=== PATIENT | male | born 1975 | race Caucasian/White ===

== ENCOUNTER 2024-01-07 11:47 | Emergency (ER) | payer OTHER, SELFPAY ==
[2024-01-07 11:48] VITALS: BP 165/89
[2024-01-07 11:55] VITALS: BP 146/92
[2024-01-07 12:00] VITALS: BP 126/93
[2024-01-07] MEDS: NSS 500 IV (12:13)
[2024-01-07 12:15] VITALS: BMI 37.1
[2024-01-07 12:27] LABS: Hematocrit 40.8 % (39.0-52.0); Hemoglobin 14.5 g/dL (13.0-18.0); Mean Corp Hgb Conc. 35.5 g/dL (33.0-37.0); Mean Corpuscular Hgb 30.2 pg (27.0-31.0); Mean Platelet Volume 10.2 fL (7.4-10.4); Platelet Count 172 10^3/uL (130-400); Red Cell Dist. Width 11.7 % (11.5-14.5); White Blood Cell Count 7.4 10^3/uL (4.8-10.8)
[2024-01-07 12:42] LABS: Blood Urea Nitrogen 15 mg/dl (9-20); Calcium 9.1 mg/dl (8.4-10.2); Carbon Dioxide 24 mmol/L (22-30); Chloride 104 mmol/L (98-107); Estimated Creatinine Clearance > 125 ml/min; Glucose 153 mg/dl (70-99); Sodium 139 mmol/L (135-145); eGFR > 60.00
--- NOTE | 2024-01-07 12:50 | ED.GENMED ---
History of Present Illness
General
Chief Complaint: Flank Pain
Source: patient
Exam Limitations: none
Time Seen by Provider: 01/07/24 12:01
Nursing documentation reviewed up to this point in time: agreed with
Travel History
Have you had any contact with someone who has COVID-19?: No
Do you have any symptoms of coronavirus? Fever > 100 degrees, chills, cough, shortness of breath, sore throat, loss of taste or smell, muscle aches, or headache?: No
History of Present Illness
History of Present Illness:
Patient presents to ED secondary to persistent right flank pain over the past 2 weeks, which started the night of his outpatient regularly scheduled, routine colonoscopy. Pain described as sharp, worse with certain movements. Denies any symptoms
at rest. Denies trauma. Denies shortness of breath. Denies fever or chills. Denies recent change in activities. Denies nausea or vomiting. Denies previous history of similar symptoms. Denies family history of blood clots. Secondary to
ongoing abdominal/flank pain, outpatient CT abdomen pelvis was ordered today, which revealed right lower lobe subsegmental PE. Patient was subsequently referred to ED for further evaluation and treatment.
Past History
Past History
ED Past Medical History: None
ED Past Surgical History: None
Social History
Tobacco: Non-smoker
Review of Systems
Review of Systems
Allergies reviewed?: Yes
All Other Systems: ROS reviewed and negative except as documented in HPI and ROS
Constitutional: Reports no symptoms
EENT: Reports no symptoms
Respiratory: Reports no symptoms
Cardiac: Reports no symptoms
ABD/GI: Reports no symptoms
: Reports flank pain
Musculoskeletal: Reports no symptoms
Skin: Reports no symptoms
Neurological: Reports no symptoms
Phy Exam
Physical Exam
Physical Exam:
Physical Exam
General: no apparent distress, not acutely ill. afebrile
Head: nc/at. eomi
Neck: supple. no meningeal signs.
Heart: s1/s2 regular rate and rhythm, no murmur. equal radial pulses.
Lungs: no acute respiratory distress. clear bilaterally. chest wall nontender to palpation.
Abdomen: normal bowel sounds. not tender.
Neuro: alert and oriented. no focal neurological deficits
Skin: no rash
Psychiatric: well kept. interactive and cooperative
Extremities: no edema. no calf tenderness.
Course
Orders/Labs/Results
Orders:
Orders
01/07/24 12:05
CT Chest Pe Study Urgent
Comment:
Reason For Exam: Outpt CT abd/pel with possible RLL PE
01/07/24 12:06
0.9% Sodium Chloride 500 ml [Nss] 500 ml IV BOLUS
01/07/24 12:12
Basic Metabolic Panel Urgent
Complete Blood Count/No Diff Urgent
01/07/24 14:59
Apixaban [Eliquis] 10 mg PO NOW STA
Abnormal Lab Results
01/07/24
12:12
Glucose 153 H mg/dl
(70-99)
01/07/24 12:12
01/07/24 12:12
Vital Signs
Initial and Last Documented VS:
Initial Vital Signs
Temp Pulse Resp BP Pulse Ox
98.0 F 73 20 165/89 100
01/07/24 11:48 01/07/24 11:48 01/07/24 11:48 01/07/24 11:48 01/07/24 11:48
Last Documented Vital Signs
Temp Pulse Resp BP Pulse Ox
98.0 F 61 22 142/81 95
01/07/24 11:48 01/07/24 15:15 01/07/24 15:15 01/07/24 15:00 01/07/24 15:00
MDM/Problems Addressed
MDM/Problems Addressed:
CT report reviewed: Left lower lobe subsegmental PE, without any evidence of right heart strain. In addition, patient remains afebrile, hemodynamically stable, without any discomfort during observation. As such, after discussion with patient and
spouse, who are both physicians, patient will be discharged home on Eliquis, with referral to pulmonology for an urgent outpatient consultation for further workup. Patient advised to return to ED with worsening symptoms.
*Critical Care Note
Total Time (30-74mins, 75-104mins- exclusive of procedures): Not Applicable
ED Attending Note
-
Portions of this chart may have been created with voice recognition software.� Occasional wrong word or��sound alike� substitutions may have occurred due to the inherent limitations of voice recognition software.
Discharge Plan
Departure
Patient Disposition: Home (Routine Discharge)
Date of Disposition: 01/07/24
Time of Disposition: 15:02
Patient with high blood pressure during this ER visit?: Yes
Condition: Good
Discharge Problem:
Pulmonary embolism
Instructions: Pulmonary embolism - Discharge instructions, ED Low Risk PE
Prescriptions:
New
Eliquis DVT-PE Treat 30D Start 5 mg (74 tabs) tablets,dose pack
See Rx Instructions .ROUTE .COMPLEX Qty: 74 0RF
Rx Instructions:
orally per package directions
Referrals:
Stan Coleman MD [Active] -
Evy Hsieh MD [Family Provider] -
Activity Restrictions/Additional Instructions:
As discussed, please follow-up with referred meteorological technician for further evaluation and treatment. You will receive a phone call at home next week from meteorological technician office with an appointment date. Your prescription has been sent electronically to
[facility] pharmacy on [facility] in [place].
Interventions
Interventions:
*Risk Screen - Suicide Last Done: 01/07/24 11:48
*General Assessment Last Done: 01/07/24 11:48
*Neglect/Abuse Screening Last Done: 01/07/24 11:48
ED- Fall Risk Assessment Last Done: 01/07/24 12:15
*ED COVID-19 Vaccine History Last Done: 01/07/24 12:15
*Nursing Disposition Last Done: 01/07/24 16:17
XK-Ukitke-Azjvubexjq Assessment Last Done: 01/07/24 12:15
ED-Male Genitourinary Assessment Last Done: 01/07/24 12:15
Discharge Date and Time
Discharge Date/Time: 01/07/24 16:17
Print Language: SPANISH
[2024-01-07 14:10] VITALS: BP 138/82
[2024-01-07 15:00] VITALS: BP 142/81
[2024-01-07] MEDS: ELIQUIS 10 MG PO (15:30)
== END 2024-01-07 16:17 | disposition home or self-care (01) ==
LOC: EMR 11:47
PROVIDERS: EMERGENCY PHYSICIAN Emergency Medicine; FAMILY PHYSICIAN Student in an Organized Health Care Education/Training Program
DX: I26.93 Single subsegmental thrombotic pulmonary embolism without acute cor pulmonale (principal); R03.0 Elevated blood-pressure reading, without diagnosis of hypertension
CPT/HCPCS: 99285; 96360; 71275; 80048; 85027; Q9967

== ENCOUNTER → 2024-01-20 13:56 | Outpatient (REF) | payer OTHER, SELFPAY ==
[2024-01-20 15:27] LABS: PSA, Total - Screen 2.18 ng/ml (0.0-4.0)
== END ==
LOC: REG 13:56
PROVIDERS: ATTENDING PHYSICIAN Internal Medicine
DX: I26.99 Other pulmonary embolism without acute cor pulmonale (principal); N40.0 Benign prostatic hyperplasia without lower urinary tract symptoms
CPT/HCPCS: 36415; G0103

== ENCOUNTER → 2025-01-11 06:55 | Outpatient (REF) | payer OTHER, SELFPAY ==
[2025-01-11 07:51] LABS: % Eosinophils 3.5 % (0-6); % Immature Granulocytes 0.4 % (0-0.5); % Lymphocytes 26.4 % (20.5-51.1); % Neutrophils 60.7 % (42.2-75.2); Absolute Basophils 0.1 10^3/uL (0-0.2); Absolute Eosinophils 0.2 10^3/uL (0-0.7); Absolute Lymphocytes 1.8 10^3/uL (1.2-3.4); Absolute Monocytes 0.5 10^3/uL (0.1-0.6); Absolute Neutrophils 4.1 10^3/uL (1.4-6.5); Hematocrit 43.9 % (39.0-52.0); Hemoglobin 15.4 g/dL (13.0-18.0); Mean Corp Hgb Conc. 35.1 g/dL (33.0-37.0); Mean Corpuscular Hgb 30.1 pg (27.0-31.0); Mean Corpuscular Volume 85.7 fL (80.0-94.0); Mean Platelet Volume 9.7 fL (7.4-10.4); Nucleated Red Blood Cells % 0 % (-); Platelet Count 179 10^3/uL (130-400); Red Blood Cell Count 5.12 10^6/uL (4.70-6.10); Red Cell Dist. Width 11.8 % (11.5-14.5); White Blood Cell Count 6.8 10^3/uL (4.8-10.8)
[2025-01-11 08:15] LABS: Urine Albumin Negative (Neg - Trace); Urine Bilirubin Negative (Negative); Urine Character Clear (Clear); Urine Color Yellow; Urine Glucose Negative (Negative); Urine Ketone Negative (Negative); Urine Leukocyte Negative (Negative); Urine Nitrite Negative (Negative); Urine Occult Blood Negative (Negative); Urine Specific Gravity 1.015 (<1.030); Urine Urobilinogen Negative (Neg - 1+)
[2025-01-11 08:57] LABS: ALT (SGPT) 22 U/L (0-50); AST (SGOT) 22 U/L (17-59); Albumin 4.7 g/dl (3.5-5.0); Alkaline Phosphatase 63 U/L (38-126); Blood Urea Nitrogen 20 mg/dl (9-20); Calcium 9.4 mg/dl (8.4-10.2); Carbon Dioxide 25 mmol/L (22-30); Chloride 110 mmol/L (98-107); Glucose 92 mg/dl (70-99); HDL Cholesterol 30 mg/dl; LDL Cholesterol, Calculated 101 mg/dl; Potassium 4.2 mmol/L (3.5-5.1); Sodium 143 mmol/L (135-145); Total Bilirubin 1.6 mg/dl (0.2-1.3); Total Cholesterol 165 mg/dl (50-199); Total Protein 7.6 g/dl (6.3-8.2); Triglyceride 170 mg/dl (10-149); Very Low Density Lipoprotein 34 mg/dl (0-30); eGFR > 60.00
[2025-01-11 09:02] LABS: Erythrocyte Sed Rate 14 mm/hour (0-20)
[2025-01-11 09:18] LABS: PSA, Total - Screen 3.17 ng/ml (0.0-4.0)
[2025-01-13 08:53] LABS: ANA, IgG Reflex to HEp-2 None Detected (None Detected)
== END ==
LOC: REG 06:55
PROVIDERS: ATTENDING PHYSICIAN Internal Medicine
DX: E78.2 Mixed hyperlipidemia (principal); Z86.711 Personal history of pulmonary embolism; R63.5 Abnormal weight gain; I10 Essential (primary) hypertension; R79.82 Elevated C-reactive protein (CRP); E66.01 Morbid (severe) obesity due to excess calories; Z00.00 Encounter for general adult medical examination without abnormal findings
CPT/HCPCS: 36415; 80053; 80061; 81003; 85025; 85652; 86038; 86430; G0103